=== PATIENT | female | born 1975 | race Asian ===

== ENCOUNTER 2020-01-16 17:37 | Emergency (ER) | payer OTHER ==
--- NOTE | 2020-01-16 18:01 | ED Physician Documentation ---
History of Present Illness - Stated complaint Stated Complaint: HAND & FEET SWELLING - Chief complaint Chief Complaint: Ext Problem - History obtained from History obtained from: Patient - Additonal information Additional information: 44-year-old woman with recent diagnosis of ulcerative colitis. Also has been seeing a technician plant and maintenance for painful skin nodules that are migratory. She was started on prednisone 3 days ago and the painful areas in the skin are worse, especially over the extensor surface of the left wrist, the pad of the right third finger. And the heels and soles of both feet. Review of Systems Constitutional: reports: Reviewed and negative Eyes: reports: Reviewed and negative Nose: reports: Reviewed and negative Throat: reports: Reviewed and negative Cardiac: reports: Reviewed and negative PD PAST MEDICAL HISTORY - Present Medications Home Medications: Ambulatory Orders Medication Instructions Recorded Confirmed Aspirin/Acetaminophen/Caffeine 1 tab PO PRN PRN 01/16/20 01/16/20 [Excedrin Migraine Caplet] Cyclobenzaprine [Flexeril] 1 tab PO PRN PRN 01/16/20 01/16/20 Eszopiclone [Lunesta] 1 tab PO PRN PRN 01/16/20 01/16/20 HYDROcod/ACETAM 5/325 [[place] 5/325] 1 - 2 tab PO Q6H PRN #15 tablet 01/16/20 Levothyroxine Sodium [Synthroid] 1 tab PO DAILY 01/16/20 01/16/20 Mesalamine [Lialda] 2 tab PO DAILY 01/16/20 01/16/20 Montelukast [Singulair] 1 tab PO DAILY 01/16/20 01/16/20 predniSONE [Deltasone] 40 mg PO DAILY 01/16/20 01/16/20 - Allergies Allergies/Adverse Reactions: Allergies Allergy/AdvReac Type Severity Reaction Status Date / Time No Known Drug Allergies Allergy Verified 01/16/20 17:46 PD ED PE NORMAL - Vitals Vital signs reviewed: Yes - General General: Alert and oriented X 3, No acute distress - Extremities Extremities: Other (She has tender skin masses especially the right third finger, over the ulnar side of the dorsal left wrist. She feels like she has these in the bottom of the feet to but I am unable to appreciate them there.) - Neuro Neuro: Alert and oriented X 3, Normal speech Results - Vitals Vitals: Vital Signs - 24 hr 01/16/20 01/16/20 17:43 17:56 Temperature 36.2 C L 36.5 C Heart Rate 83 83 Respiratory 15 16 Rate Blood Pressure 151/94 H 151/94 H O2 Saturation 99 99 Oxygen O2 Source Room air - Labs Labs: Laboratory Tests 01/16/20 01/16/20 01/16/20 17:55 18:15 18:15 WBC 9.8 RBC 4.57 Hgb 13.3 Hct 40.4 MCV 88.4 MCH 29.1 MCHC 32.9 RDW 13.1 Plt Count 318 MPV 9.9 Neut # (Auto) 6.2 Lymph # (Auto) 2.9 [place] # (Auto) 0.6 Eos # (Auto) 0.0 Baso # (Auto) 0.0 Absolute Nucleated RBC 0.00 Nucleated RBC % 0.0 Sodium 137 Potassium 3.6 Chloride 101 Carbon Dioxide 24 Anion Gap 12.0 BUN 17 Creatinine 0.6 Estimated GFR (MDRD) 108 Glucose 102 H Calcium 9.5 Total Bilirubin 0.7 AST 19 ALT 31 Alkaline Phosphatase 70 Total Protein 7.6 Albumin 4.3 Globulin 3.3 Albumin/Globulin Ratio 1.3 Lipase 32 Urine Color YELLOW Urine Clarity HAZY Urine pH 5.5 Ur Specific [place] 1.010 Urine Protein NEGATIVE Urine Glucose (UA) NEGATIVE Urine Ketones NEGATIVE Urine Occult Blood NEGATIVE Urine Nitrite NEGATIVE Urine Bilirubin NEGATIVE Urine Urobilinogen 0.2 (NORMAL) Ur Leukocyte Esterase TRACE H Urine RBC 0-5 Urine WBC 0-3 Ur Squamous Epith Cells MOD Squamous H Urine Bacteria Few Ur Microscopic Review INDICATED Urine Culture Comments NOT INDICATED Urine HCG, Qual NEGATIVE PD MEDICAL DECISION MAKING - ED course ED course: 44-year-old woman with inflammatory bowel disease and skin lesions, most consistent with erythema nodosum although not completely typical for that. Somewhat worse after starting prednisone but has only been on a prednisone for a few days. We discussed whether or not we should stop the steroids at this point and I think we should continue them pending consultation with her technician plant and maintenance. She does need something for pain. Departure - Departure Disposition: 01 Home, Self Care Clinical Impression: Extraintestinal manifestation of inflammatory bowel disease Condition: Good Record reviewed to determine appropriate education?: Yes Instructions: Colitis Ulcerative Prescriptions: HYDROcod/ACETAM 5/325 [[place] 5/325] 1 - 2 tab PO Q6H PRN #15 tablet PRN Reason: Pain Comments: I would Recommend you put in a call to your technician plant and maintenance tomorrow to question whether or not you should continue the steroids. I would recommend you continue them until you talk with him or her. Return if worsening.
[2020-01-16 18:28] LABS: BILIRUBIN,URINE NEGATIVE (NEGATIVE); GLUCOSE, URINE (UA) NEGATIVE (NEGATIVE); KETONES,URINE (UA) NEGATIVE (NEGATIVE); LEUKOCYTE ESTERASE, URINE TRACE (NEGATIVE); NITRITE,URINE NEGATIVE (NEGATIVE); OCCULT BLOOD,URINE NEGATIVE (NEGATIVE); PH,URINE 5.5 PH (5.0-7.5); PROTEIN,URINE NEGATIVE (NEGATIVE); UROBILINOGEN,URINE 0.2 (NORMAL) E.U./dL (NORMAL)
[2020-01-16 18:30] LABS: BASOPHILS % (AUTO) 0.4 %; EOSINOPHILS % (AUTO) 0.3 %; HGB - HEMOGLOBIN 13.3 g/dL (12.0-16.0); LYMPHOCYTES # (AUTO) 2.9 10^3/uL (1.5-3.5); LYMPHOCYTES % (AUTO) 29.1 %; MEAN CORPUSCULAR HEMOGLOBIN 29.1 pg (27.0-31.0); MEAN CORPUSCULAR HGB CONC 32.9 g/dL (32.0-36.0); MEAN CORPUSCULAR VOLUME 88.4 fL (81.0-99.0); MEAN PLATELET VOLUME 9.9 fL (7.9-10.8); MONOCYTES # (AUTO) 0.6 10^3/uL (0.0-1.0); MONOCYTES % (AUTO) 6.1 %; NEUTROPHILS # (AUTO) 6.2 10^3/uL (1.5-6.6); NEUTROPHILS % (AUTO) 63.8 %; PLT - PLATELET COUNT 318 10^3/uL (130-450); RED BLOOD COUNT 4.57 10^6/uL (4.20-5.40); RED CELL DISTRIBUTION WIDTH 13.1 % (12.0-15.0); WHITE BLOOD COUNT 9.8 x10^3/uL (4.8-10.8)
[2020-01-16 18:34] LABS: CLARITY,URINE HAZY (CLEAR); HCG UR QUAL NEGATIVE
[2020-01-16 18:39] LABS: BACTERIA,URINE Few /HPF (None Seen); RBC,URINE 0-5 /HPF (0-5); SQUAMOUS EPITHELIAL CELL,UR MOD Squamous (<= Few)
[2020-01-16 18:47] LABS: ALBUMIN 4.3 g/dL (3.2-5.5); ALBUMIN/GLOBULIN RATIO 1.3 (1.0-2.2); BILIRUBIN,TOTAL 0.7 mg/dL (0.2-1.0); CALCIUM 9.5 mg/dL (8.5-10.3); CREATININE 0.6 mg/dL (0.4-1.0); TOTAL PROTEIN 7.6 g/dL (6.7-8.2)
[2020-01-16] MEDS ORDERED: HYDROcod/ACET 5/325 Prepack 4 PO STA (18:49)
[2020-01-16 18:59] VITALS: BP 140/90
== END 2020-01-16 18:57 | disposition home or self-care (01) ==
LOC: ED 17:37
DX: L98.9 Disorder of the skin and subcutaneous tissue, unspecified (principal); M79.644 Pain in right finger(s); M25.532 Pain in left wrist; M79.671 Pain in right foot; M79.672 Pain in left foot; K51.918 Ulcerative colitis, unspecified with other complication
CPT/HCPCS: 36415; 80053; 81001; 81003; 81025; 83690; 85025; 87086; 99283

== ENCOUNTER 2020-01-25 08:27 | Outpatient (CLI) | payer OTHER ==
[2020-01-25 09:19] VITALS: BP 108/66
--- NOTE | 2020-01-25 09:19 | SLEEP CARE CONSULTATION ---
Information from patient questionnaire entered by Lindsey Urbina. I have reviewed and concur with the information entered by Lindsey Urbina. This document represents the service I personally performed and the decisions made by me, Nely Perez ARNP. History of Present Illness Service Date and Time: 01/25/2020826 Reason for Visit: New patient Chief Complaint: reports: Insomnia, Unrefreshed sleep, Snoring, Excessive daytime sleepiness, Fatigue, Frequent awakenings at night. denies: Observed pauses in breathing Date of Onset: over 1 year Usual bedtime: 10 pm Time it takes to fall asleep: over 1 hour Snores at night: Yes (i think, sometimes) Observed to quit breathing while asleep: No Sleeps alone due to snoring: No Number of times waking at night: 2-3 Reasons for waking at night: reports: Snoring, Other (not sure). denies: Choking, Gasping for air Toss, Turn, or Twitch while sleeping: Yes Recalls having dreams: No Usually gets out of bed at: 6 am Feels refreshed in the morning: No Morning headache: Yes (sometimes; 2-3 times a week that resolves with meds) Sleepy or fatigued during the day: Yes Ever fallen asleep while driving: Yes (in the past; no accidents) Takes day naps: Yes (on weekends for about an hour) Dreams during day naps: No Prior sleep studies: No Additional HPI information: I had the pleasure of seeing RENEE SAUCEDO today regarding the possibility of her having a sleep disorder. Her current complaints are insomnia, frequent night awakenings, unrefreshed sleep, fatigue, and excessive daytime sleepiness. She has been taking Lunesta as well as other medication to help her sleep. She has been waking up during the night. If she drinks wine at night it is disturbing her sleep. Her night time cough is better with Singulair. It can take up to an hour to get to sleep at night. She has been having night sweats recently and may be postmenopausal. She also has ulcerative colitis. She is waking up for no reason and it takes up to an hour to get back to sleep. The Lunesta does help her go back to sleep when she wakes up. She states she snores sometimes, has teeth gnashing and wakes herself up snoring during naps. Her does not say she has pauses in breathing at night. - Parasomnia Symptoms Ever been unable to move upon waking from sleep: Yes (once in a while) Walks in sleep: No Talks in sleep: No Ever acted out dreams in sleep: No Ever felt weak in the knees when startled or emotional: No Bothered by creepy, crawly, restless sensations in legs: No Problems with memory or concentration: Yes Subjective Initial [place] Sleepiness Scale score: 17 (in 2019) Past Medical History Past Medical History: reports: Arthritis, Hypothyroidism, GERD, Other (Graves disease s/p WALKER; Atopic dermatitis; Cubidal tunnel; UC; allergic rhinitis; Chronic back and neck pain). 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 Patient is and lives in [place]. Have you smoked in the past 12 months: No Alcohol use: Yes Alcohol amount and frequency: 1 glass of wine 2-3 times a week Caffeine use: Yes Caffeine amount and frequency: 20 oz coffee or tea 2-3 time a day Family History Family history of sleep disordered breathing: Yes (mom (KATHIE), father) Family Hx Sleep Apnea: Mother: Sleep apnea - Treated, Father: Snoring, Sibling: Snoring Allergies and Home Medications Drug allergies reviewed: Yes (NKDA) Home medication list reviewed: Yes Allergy and home medication list: Synthroid 137 mcg mesalamine 2.4 g prednisone 30 mg (taper) fexofenadine 180 mg Singulair 10 mg Flexeril 10 mg, prn Motrin prn Excedrin prn Lunesta 2 mg QHS Review of Systems Weight gain over past 5 years: 12 Cardiovascular: reports: leg or foot swelling. denies: high blood pressure, irregular heart rate or pulse Respiratory: reports: chronic cough. denies: shortness of breath Gastrointestinal: reports: heartburn, diarrhea, abdominal pain, other (globus sensation in throat). denies: difficulty swallowing Urinary: reports: incontinence Neurological: reports: headaches, other (tinnitus). denies: head trauma Psychiatric: denies: anxiety, depression, mood disorder, claustrophobia Ear/Nose/Throat: reports: nasal congestion, dry mouth/throat, tonsillectomy, wisdom teeth removed. denies: sinus problems, nose bleeds, injury to nose Endocrine: reports: thyroid disease, unexplained weakness Musculoskeletal: reports: joint pain, neck pain, back pain, joint swelling Immunologic: reports: rash, itching. denies: allergies to food or environment Physical Exam Blood Pressure: 108/66 Cuff size: wrist Heart Rate: 71 O2 Saturation: 98 Height: 5 ft 6 in Weight: 174 lb Body Mass Index: 28.0 BMI Classification: Overweight Neck circumference: 14 (inches) Nostrils: partially obstructed Turbinates: swollen Septum: midline Mouth and throat: narrow oropharynx Uvula visualization: 50% Mallampati Class II Tongue: enlarged in size with teeth caldwell on lateral edges Tonsils: absent bilaterally Neck: normal w/o lymphadenopathy or thyromegaly Heart: regular rate and rhythm Lungs: clear bilaterally Impression and Plan 1. Suspected Obstructive Sleep Apnea-Hypopnea Syndrome, as suggested by a history of snoring, morning headache, frequent awakening during the night, unrefreshed sleep, cognitive impairment, and excessive daytime sleepiness. Narrow oropharynx and obesity are common predisposing factors for obstructive sleep apnea-hypopnea syndrome. I recommend proceeding to polysomnography to confirm the diagnosis and to assess severity. If the patient has significant sleep disordered breathing, a manual CPAP titration study will also be performed to find the optimal treatment pressure. I informed the patient of what the sleep studies involve and after some discussion, obtained agreement to proceed. The pathophysiology of obstructive sleep apnea-hypopnea syndrome was discussed with the patient and health risks of cardiovascular and cerebrovascular disease if not treated. AAS brochure for obstructive sleep apnea-hypopnea syndrome given and reviewed. Risks of drowsy driving discussed in detail and patient advised to avoid long distance driving and to hand assembler for puller over at the first sign of drowsiness. Patient agreed to plan. AAS drowsy driving brochure given. * Schedule polysomnography +- manual CPAP titration study. * Avoid long distance driving or driving when feeling sleepy. * Avoid alcohol, sedative and muscle relaxant around bedtime. * Attempt to lose weight. * Review instructions provided by trained office staff on how to prepare for the sleep study. * Return for follow-up after sleep study completed. Counseling Topics: Weight loss health impact Visit Type: In Office Time Spent with Patient (minutes): 32 Provider Statement: I spent 100% of the Face to Face Visit with the patient with greater than 50% spent counseling the patient and coordination of care.
== END 2020-01-25 08:28 | disposition home or self-care (01) ==
LOC: SC 08:27
PROVIDERS: ATTEND Nurse Practitioner Family
DX: R06.83 Snoring (principal); G47.8 Other sleep disorders; R41.89 Other symptoms and signs involving cognitive functions and awareness; G47.10 Hypersomnia, unspecified; E66.3 Overweight; Z68.28 Body mass index [BMI] 28.0-28.9, adult
CPT/HCPCS: 99203; 99212

== ENCOUNTER 2020-04-02 19:36 | Outpatient (CLI) | payer OTHER | END 2020-04-02 19:37 | disposition home or self-care (01) | LOC: SC 19:36 | PROVIDERS: ATTEND Nurse Practitioner Family | DX: R06.83 Snoring (principal); G47.10 Hypersomnia, unspecified; G47.8 Other sleep disorders | CPT/HCPCS: 95810 ==

== ENCOUNTER 2020-04-10 16:54 | Outpatient (CLI) | payer OTHER ==
--- NOTE | 2020-04-10 17:22 | SLEEP CARE CONSULTATION ---
Information from patient questionnaire entered by Ting Marcano. I have reviewed and concur with the information entered by Ting Marcano. This document represents the service I personally performed and the decisions made by , Nely Perez ARNP. History of Present Illness Service Date and Time: 04/10/20201653 Initial [place] Sleepiness Scale score: 17 (in 2020) Current [place] Sleepiness Scale score: 16 Additional HPI information: RENEE SAUCEDO returns for follow up and results of the recently performed polysomnography. The patient was informed of the following findings: no significant sleep disordered breathing with an average AHI of 3.5 and jatinder oxygen saturation of 89%. Patient only slept supine during the study. I explained the pathophysiology behind obstructive sleep apnea. Patient does not have sleep apnea and was advised how weight gain could increase the risk of developing sleep apnea in the future. I strongly encouraged the patient to lose weight. Patient has moderate to loud snoring. Snoring can be reduced by weight loss. Weight loss is best achieved with diet consult. Patient instructed to contact PCP for referral. Snoring can also be treated with an oral appliance from a dentist. Advised to check insurance coverage. In addition, an ENT evaluation can be do to see if other treatment is indicated. Patient counseled not drink alcohol less than 4 hours before bedtime as it can increase snoring and apnea. Patient was cautioned about risks of drowsy driving until sleepiness symptoms resolve. Sleep Study - Results Type of Sleep Study: Polysomnography Prior sleep studies: No Polysomnography/Home Sleep Study results: IMPRESSION: The quality of the study is good. The patient had normal sleep efficiency. The sleep architecture was normal as well. Respiratory monitoring showed no significant sleep disordered breathing (AHI = 3.5) or hypoxia (jatinder oxygen saturation of 89%). The patient only slept supine during this study (supine AHI = 3.5; nonsupine = 0.00). Snore was moderate to loud in intensity. There was no significant periodic leg movement of sleep. Cardiac rhythm was normal sinus rhythm without significant arrhythmia. No abnormal behavior (parasomnia) observed during the night. Allergies and Home Medications Drug allergies reviewed: Yes (NKDA) Home medication list reviewed: Yes (oxycodone, prn) Review of Systems Review of systems same as previous: No (laparoscopic left ovary removal) Physical Exam Heart Rate: 66 O2 Saturation: 95 Height: 5 ft 6 in Weight: 186 lb Body Mass Index: 29.9 BMI Classification: Overweight Impression and Plan 1. Suspected Obstructive Sleep Apnea-Hypopnea Syndrome, as suggested by a history of loud and irregular snoring, frequent awakening during the night, unrefreshed sleep, and excessive daytime sleepiness. She completed an in lab PSG but did not sleep on her side during the study. She states her tells her she snores really bad on her side. I cannot rule out sleep apnea when sleeping on her side and patient would like to stop taking her Lunesta to sleep. I recommend proceeding to HST with her sleeping on her side to confirm the diagnosis and to assess severity. After some discussion, we obtained agreement to proceed. * Schedule HST with patient sleeping on her side as well as back to verify severity and diagnosis. * Avoid long distance driving or driving when feeling sleepy. * Avoid alcohol, sedative and muscle relaxant around bedtime. * Attempt to lose weight. * Return for follow-up after sleep study completed. Counseling Topics: Weight loss health impact Visit Type: In Office Time Spent with Patient (minutes): 21 Provider Statement: I spent 100% of the Face to Face Visit with the patient with greater than 50% spent counseling the patient and coordination of care.
== END 2020-04-10 16:55 | disposition home or self-care (01) ==
LOC: SC 16:54
PROVIDERS: ATTEND Nurse Practitioner Family
DX: G47.10 Hypersomnia, unspecified (principal); G47.8 Other sleep disorders; R06.83 Snoring
CPT/HCPCS: 99212; 99213

== ENCOUNTER 2020-05-09 13:35 | Outpatient (CLI) | payer OTHER | END 2020-05-09 13:36 | disposition home or self-care (01) | LOC: SC 13:35 | PROVIDERS: ATTEND Nurse Practitioner Family | DX: R06.83 Snoring (principal); G47.8 Other sleep disorders; G47.10 Hypersomnia, unspecified; E66.3 Overweight; Z68.28 Body mass index [BMI] 28.0-28.9, adult | CPT/HCPCS: 95806 ==

== ENCOUNTER 2020-05-29 10:04 | Outpatient (CLI) | payer OTHER ==
--- NOTE | 2020-05-29 10:14 | SLEEP CARE CONSULTATION ---
Information from patient questionnaire entered by Lindsey Urbina. I have reviewed and concur with the information entered by Lindsey Urbina. This document represents the service I personally performed and the decisions made by , Nely Perez ARNP. History of Present Illness Service Date and Time: 05/29/2020 1000 Initial [place] Sleepiness Scale score: 17 (in 2020) Current [place] Sleepiness Scale score: 16 Additional HPI information: RENEE SAUCEDO returns via Telehealth visit for follow up and results of the recently performed home sleep study. The patient was informed of the following findings: no significant sleep di sordered breathing with an average AHI of 3.8 and jatinder oxygen saturation of 82%. I explained the pathophysiology behind obstructive sleep apnea. Patient does not have sleep apnea and was advised how weight gain could increase the risk of developing sleep apnea in the future. I strongly encouraged the patient to lose weight. Patient has moderate to loud snoring. Snoring can be reduced by weight loss. Weight loss is best achieved with diet consult. Patient instructed to contact PCP for referral. Snoring can also be treated with an oral appliance from a dentist. Advised to check insurance coverage. In addition, an ENT evaluation can be do to see if other treatment is indicated. Patient counseled not drink alcohol less than 4 hours before bedtime as it can increase snoring and apnea. Patient was cautioned about risks of drowsy driving until sleepiness symptoms resolve. Sleep Study - Results Type of Sleep Study: Home sleep study Prior sleep studies: Yes (negative Poly) Year and Where: [address] - [facility] Sleep Polysomnography/Home Sleep Study results: Physician Impression: The quality of the study is fair due to partial loss of airflow signal.. The length of the study is adequate (> 240 minutes). Please also see the tabulated and graphic data. 1. No significant sleep-disordered breathing, with an AHI of 3.8/hr and jatinder SaO2 of 82%. During the study, the patient had 7 apneas (7 obstructive, 0 central, 0 mixed) and 6 hypopneas. The longest episode lasted 46.0 seconds. The few respiratory events occurred slightly more frequently during supine sleep (supine AHI was 4.8 and non-supine, 3.04). 2. Hypoxemia (ICD-10 R09.02), minimal, with the lowest oxygen saturation of 82 % and 0.7 minutes with SaO2 under 90%. Baseline oxygen saturation was normal (Average oxygen saturation was 94%). Allergies and Home Medications Home medication list reviewed: Yes (not taking Lunesta and Flexeril) Review of Systems Review of systems same as previous: Yes (no changes) Physical Exam Vital signs obtained and entered by: Telehealth visit to reduce exposure during Covid pandemic Height: 5 ft 6 in Impression and Plan Snoring but no significant sleep disordered breathing. Patient advised that often weight loss will reduce snoring as well as apnea risk. An oral appliance can also be used for snoring. This would require a dental consultation. Patient cautioned not to use other online appliances as can cause bite issues. A list of accredited dentists in area and one local dentist who makes oral appliances will be sent to patient. Patient is advised to check if insurance will cover. An ENT consult can also be helpful to determine if any other treatment is an option. * Attempt to lose weight * Avoid alcohol consumption near bedtime * The patient is cautioned about driving until sleepiness is completely resolved. * Return in as needed for follow up. Counseling Topics: Weight loss health impact Visit Type: Telehealth Video Video Type: VSee Patient Location: Home Location of Provider: Office Patient agrees and consents to this telehealth visit type: Yes Patient agrees to have their insurance billed: Yes Time Spent with Patient (minutes): 15 Provider Statement: I spent 100% of the Telehealth Video Call with the patient with greater than 50% spent counseling the patient and coordination of care.
== END 2020-05-29 10:05 | disposition home or self-care (01) ==
LOC: SC 10:04
PROVIDERS: ATTEND Nurse Practitioner Family
DX: G47.10 Hypersomnia, unspecified (principal); G47.8 Other sleep disorders; R06.83 Snoring; E66.3 Overweight; Z68.29 Body mass index [BMI] 29.0-29.9, adult